=== PATIENT | male | born 1945 | race Caucasian/White ===

== ENCOUNTER 2021-08-04 07:39 | Inpatient (IN) ==
[2021-08-04] MEDS ORDERED: GLUCAGON 1 MG VIAL IM PRN (08:21)
[2021-08-04] MEDS ORDERED: CLORAZEPATE 3.75 MG TABLET PO PRN (09:14)
[2021-08-04] MEDS ORDERED: MORPHINE 2 MG/1 ML SYRINGE IV PRN (09:14)
[2021-08-04] MEDS ORDERED: NITROGLYCERIN SL 0.4 MG TABLET SL PRN (09:14)
[2021-08-04] MEDS ORDERED: DEXTROSE 10% 250 ML BAG IV PRN (13:12)
[2021-08-04 13:37] LABS: Basophils # 0.1 10*3/uL (0.0-0.2); Basophils % 1.5 % (0.0-0.8); Eosinophils # 0.2 10*3/uL (0.0-0.87); Eosinophils % 4.5 % (0.00-10.9); Hematocrit 46.8 VOL% (42.0-52.0); Hemoglobin 15.8 GM/DL (14.0-18.0); Immature Granulocytes % 0.4 %; Immature Granulocytes Absolute 0.02 #; Lymphocytes # 1.2 10*3/uL (1.4-4.0); Lymphocytes % 25.4 % (21.2-54.2); Mean Corpuscular HGB Conc 33.8 GM/DL (32-36); Mean Corpuscular Volume 88.1 FL (87-102); Mean Platelet Volume 8.9 FL (9.6-12.0); Monocytes # 0.5 10*3/uL (0.11-0.8); Monocytes % 11.1 % (1.7-12.7); Neutrophils % 57.1 % (38.7-73.9); Platelet Count 184 T/CUMM (130-400); Red Blood Count 5.31 MC/CUMM (3.8-5.5); Red Cell Distribution Width 15.2 % (9.3-17.3); White Blood Count 4.7 T/CUMM (4-12)
[2021-08-04] MEDS ORDERED: SODIUM CHLORIDE 0.9% 1,000 ML IV SCH (14:00)
[2021-08-04 14:01] LABS: Albumin 3.9 G/DL (3.4-5.0); Bilirubin,Total 0.7 MG/DL (0.20-1.00); Calcium 9.4 MG/DL (8.5-10.1); Osmolality,Calculated 288.5 MOS/KG (273-304); Potassium 4.5 MMOL/L (3.5-5.1); Total Protein 7.4 G/DL (6.4-8.2)
[2021-08-04] MEDS: CHLORHEXIDINE 0.12% ORAL RINSE 60 ML BOTTLE SWISH/SPIT SCH ×2 (14:33→22:08)
[2021-08-04] MEDS: CHLORHEXIDINE 4% SOLN 118 ML BOTTLE TOP SCH ×2 (15:02→22:08)
[2021-08-04] MEDS: INSULIN REGULAR 100 UNIT/ML SUBCUT SCH ×2 (15:54→21:34)
[2021-08-04 16:15] LABS: Arterial Base Excess iSTAT -1 MMOL/L (-2.5-2.5); Arterial Bicarbonate iSTAT 23.8 MMOL/L (20-26); Arterial O2 Saturation iSTAT 92 % (95-100); Arterial PCO2 iSTAT 40 MM HG (35-48); Arterial PO2 iSTAT 66 MM HG (80-95); Arterial Total CO2 iSTAT 25 MMO/L (23-27); Arterial pH iSTAT 7.382 (7.35-7.45)
[2021-08-04] MEDS ORDERED: SIMVASTATIN 20 MG TABLET PO SCH (21:00)
[2021-08-04] MEDS: carvediloL 12.5 MG TABLET PO SCH (22:08)
[2021-08-05] MEDS ORDERED: VANCOMYCIN 500 MG VIAL ONE (04:19)
[2021-08-05] MEDS ORDERED: PAPAVERINE 60 MG/2 ML VIAL ONE ×2 (04:19→09:58)
[2021-08-05] MEDS ORDERED: VANCOMYCIN 1,000 MG VIAL ONE (04:19)
[2021-08-05] MEDS ORDERED: DIAZEPAM 5 MG TABLET PO ONE (04:42)
[2021-08-05] MEDS: CHLORHEXIDINE 4% SOLN 118 ML BOTTLE TOP SCH (04:45)
[2021-08-05] MEDS ORDERED: PANTOPRAZOLE 40 MG TABLET PO STA (04:46)
[2021-08-05] MEDS ORDERED: CEFUROXIME INJ 1,500 MG in SODIUM CHLORIDE 0.9% 100 ML IV ONE (05:00)
[2021-08-05] MEDS ORDERED: MIDAZOLAM 10 MG/2 ML VIAL ONE ×4 (06:00→09:33)
[2021-08-05] MEDS ORDERED: SUFentanil 250 MCG/5 ML AMP ONE ×3 (06:00→06:01)
[2021-08-05] MEDS ORDERED: VECURONIUM 10 MG VIAL IV ONE ×2 (06:11→09:33)
[2021-08-05] MEDS ORDERED: LIDOCAINE 2% 5 ML VIAL ONE ×2 (06:11→11:36)
[2021-08-05] MEDS ORDERED: ETOMIDATE 40 MG/20 ML VIAL IV ONE (06:11)
[2021-08-05] MEDS ORDERED: MINERAL OIL/PETROLATUM OPH OINT 3.5 GM TUBE ONE (06:11)
[2021-08-05] MEDS ORDERED: AMINOCAPROIC ACID 5,000 MG/20 ML VIAL ONE ×4 (06:12)
[2021-08-05] MEDS ORDERED: SODIUM BICARBONATE 50 MEQ/50 ML VIAL IV ONE (06:54)
[2021-08-05] MEDS ORDERED: POTASSIUM CHLORIDE RIDER 20 MEQ/100 ML PREMIX IV ONE (06:55)
[2021-08-05] MEDS ORDERED: NITROPRUSSIDE 50 MG/2 ML VIAL ONE (06:55)
[2021-08-05] MEDS ORDERED: PHENYLEPHRINE DRIP 40 MG/250 ML PREMIX IV ONE (06:55)
[2021-08-05] MEDS ORDERED: CALCIUM CHLORIDE 1,000 MG/10 ML SYRINGE IV ONE (06:56)
[2021-08-05] MEDS ORDERED: ALBUMIN 5% 25.0 GM/500 ML VIAL IV ONE (06:57)
[2021-08-05] MEDS ORDERED: ePHEDrine 50 MG/ML VIAL ONE (07:25)
[2021-08-05 07:29] LABS: ABG HCO3 23.7 MMOL/L (20-26); ABG PCO2 40.7 MM HG (35-48); ABG PH 7.381 (7.35-7.45); ABG TCO2 20.5 MMOL/L (23-27); Glucose Heart Surgery 171 MG/DL (74-106); Hematocrit Heart Surgery 46.5 PERCENT (42-52); Hemoglobin Heart Surgery 15.2 G/DL (14.0-18.0); Ionized Calcium Arterial 1.23 MMOL/L (1.21-1.46); PCO2 Patient Temp Arterial 40.7 MMHG; PH Patient Temp Arterial 7.381; Patient Temperature 37 CELCIUS; Sodium Heart/CVR 140 MMOL/L (135-145)
[2021-08-05] MEDS ORDERED: PHENYLEPHRINE 1 MG/10 ML SYRINGE IV ONE (07:33)
[2021-08-05] MEDS ORDERED: NITROGLYCERIN DRIP 50 MG/250 ML BOTTLE IV ONE (07:46)
[2021-08-05] MEDS ORDERED: HEPARIN/NACL 0.9% 2 UNITS/ML 1,000 UNIT/500 ML BAG IV ONE (07:46)
[2021-08-05] MEDS ORDERED: CALCIUM CHLORIDE 1,000 MG/10 ML VIAL IV ONE ×3 (08:08→11:25)
[2021-08-05] MEDS: INSULIN REGULAR 100 UNIT/ML SUBCUT SCH ×2 (08:42→13:59)
[2021-08-05] MEDS: CHLORHEXIDINE 0.12% ORAL RINSE 60 ML BOTTLE SWISH/SPIT SCH (08:43)
[2021-08-05] MEDS: carvediloL 12.5 MG TABLET PO SCH (08:43)
[2021-08-05 09:14] LABS: Hematocrit Heart Surgery 32.9 PERCENT (42-52); Hemoglobin Heart Surgery 10.6 G/DL (14.0-18.0); PH Patient Temp Venous 7.452; VBG Base Excess -0.3 MEQ/L (0-4); VBG HCO3 23.9 MEQ/L (24-28); VBG Oxygen Saturation 83.1 %; VBG PCO2 38.2 MMHG (41-51); VBG PH 7.409; VBG PO2 49.2 MMHG (17-40); VBG Total CO2 21.8 MMOL/L
[2021-08-05 09:45] LABS: Hematocrit Heart Surgery 36.1 PERCENT (42-52); Hemoglobin Heart Surgery 11.7 G/DL (14.0-18.0); PCO2 Patient Temp Venous 28.5 MM HG; PH Patient Temp Venous 7.506; PO2 Patient Temp Venous 35.8 MM HG; Potassium Heart/CVR 4.9 MMOL/L (3.5-5.1); VBG Base Excess 0.3 MEQ/L (0-4); VBG HCO3 24.4 MEQ/L (24-28); VBG Oxygen Saturation 81.3 %; VBG PH 7.461; VBG PO2 44.1 MMHG (17-40); VBG Total CO2 20.9 MMOL/L
[2021-08-05 09:59] LABS: Bilirubin,Urine Negative (Negative); Blood, Urine Trace mg/dL (Negative); Glucose,Urine (UA) >1000 mg/dL (Negative); Ketones,Urine Negative (Negative); Nitrite,Urine Negative (Negative); Protein,Urine Negative (Negative); RBC,Urine 1 /HPF (0-4); Urine Appearance Clear (Clear); Urine Color Yellow (Yellow)
[2021-08-05 10:00] LABS: Urine Urobilinogen 0.2 eU/dL (<2.0)
[2021-08-05 10:10] LABS: Hemoglobin Heart Surgery 11.4 G/DL (14.0-18.0); PCO2 Patient Temp Venous 29.3 MM HG; PH Patient Temp Venous 7.501; PO2 Patient Temp Venous 36.6 MM HG; Potassium Heart/CVR 5.1 MMOL/L (3.5-5.1); VBG Base Excess 0.5 MEQ/L (0-4); VBG HCO3 24.6 MEQ/L (24-28); VBG Oxygen Saturation 80.4 %; VBG PCO2 33.9 MMHG (41-51); VBG PH 7.457; VBG PO2 45.1 MMHG (17-40); VBG Total CO2 21.4 MMOL/L
[2021-08-05 10:38] LABS: Hematocrit Heart Surgery 35.5 PERCENT (42-52); Hemoglobin Heart Surgery 11.5 G/DL (14.0-18.0); PCO2 Patient Temp Venous 35.3 MM HG; PH Patient Temp Venous 7.468; Potassium Heart/CVR 5.4 MMOL/L (3.5-5.1); VBG Base Excess 2.2 MEQ/L (0-4); VBG HCO3 25.9 MEQ/L (24-28); VBG Oxygen Saturation 75.5 %; VBG PCO2 35.3 MMHG (41-51); VBG PH 7.468; VBG Total CO2 22.8 MMOL/L
[2021-08-05] MEDS ORDERED: THROMBIN TOPICAL (RECOMBINANT) 5,000 UNIT VIAL TOP ONE (10:50)
[2021-08-05 11:23] LABS: ABG Base Excess -1.2 MMOL/L (-2.5-2.5); ABG HCO3 23.4 MMOL/L (20-26); ABG PCO2 35.2 MM HG (35-48); ABG PH 7.419 (7.35-7.45); ABG TCO2 20.4 MMOL/L (23-27); Glucose Heart Surgery 273 MG/DL (74-106); Hematocrit Heart Surgery 33.6 PERCENT (42-52); Hemoglobin Heart Surgery 10.9 G/DL (14.0-18.0); Ionized Calcium Arterial 1.15 MMOL/L (1.21-1.46); PCO2 Patient Temp Arterial 35.2 MMHG; PH Patient Temp Arterial 7.419; Patient Temperature 37 CELCIUS; Potassium Heart/CVR 4.7 MMOL/L (3.5-5.1); Sodium Heart/CVR 137 MMOL/L (135-145)
[2021-08-05] MEDS ORDERED: ALBUMIN 25% 25 GM/100 ML VIAL IV ONE (11:35)
[2021-08-05] MEDS ORDERED: DEXTROSE 5% KCL 20 MEQ 40 MEQ/2,000 ML BAG IV ONE (11:36)
[2021-08-05] MEDS ORDERED: MAGNESIUM SULFATE 5 GM/10 ML VIAL IV ONE (11:36)
[2021-08-05] MEDS ORDERED: methylPREDNISolone SOD SUC 1,000 MG/8 ML VIAL ONE (11:36)
[2021-08-05] MEDS ORDERED: FUROSEMIDE 20 MG/2 ML VIAL ONE (11:37)
[2021-08-05] MEDS ORDERED: PROTAMINE SULFATE 250 MG/25 ML VIAL IV ONE (11:37)
[2021-08-05] MEDS ORDERED: HEPARIN 10,000 UNIT/10 ML VIAL ONE (11:37)
[2021-08-05] MEDS ORDERED: MANNITOL 12.5 GM/50 ML VIAL IV ONE (11:37)
[2021-08-05] MEDS ORDERED: EPINEPHrine 1 MG/ML VIAL ONE ×2 (11:43→12:55)
[2021-08-05] MEDS ORDERED: AMIODARONE 150 MG/3 ML VIAL ONE (11:50)
[2021-08-05] MEDS ORDERED: LACTATED RINGERS 1,000 ML IV ONE ×2 (12:04)
[2021-08-05] MEDS ORDERED: SODIUM CHLORIDE 0.9% 1,000 ML IV ONE (12:04)
[2021-08-05] MEDS: ALBUMIN 5% 12.5 GM/250 ML VIAL IV PRN ×2 (13:10→13:51)
[2021-08-05] MEDS ORDERED: MORPHINE 10 MG/1 ML VIAL IV PRN (13:26)
[2021-08-05] MEDS ORDERED: MIDAZOLAM 10 MG/2 ML VIAL IV PRN (13:26)
[2021-08-05] MEDS ORDERED: CALCIUM CHLORIDE 1,000 MG/10 ML SYRINGE IV PRN (13:26)
[2021-08-05] MEDS ORDERED: INSULIN REGULAR 100 UNIT/ML IV ONE (13:26)
[2021-08-05] MEDS ORDERED: POTASSIUM CHLORIDE RIDER 10 MEQ/100 ML PREMIX IV PRN (13:26)
[2021-08-05] MEDS ORDERED: SODIUM CHLORIDE 0.45% 1,000 ML IV SCH ×2 (13:26)
[2021-08-05] MEDS ORDERED: CHLORHEXIDINE 4% SOLN 118 ML BOTTLE TOP PRN (13:26)
[2021-08-05] MEDS ORDERED: MAGNESIUM SULF RIDER 4 GM/100 ML PREMIX IV PRN (13:26)
[2021-08-05] MEDS ORDERED: PHENYLEPHRINE DRIP 40 MG/250 ML PREMIX IV PRN (13:26)
[2021-08-05] MEDS ORDERED: NITROPRUSSIDE 100 MG in DEXTROSE 5% 250 ML IV PRN (13:26)
[2021-08-05] MEDS ORDERED: MAGNESIUM SULF RIDER 2 GM/50 ML PREMIX IV PRN (13:26)
[2021-08-05] MEDS ORDERED: ACETAMINOPHEN 650 MG SUPP RECTAL PRN (13:26)
[2021-08-05] MEDS ORDERED: ONDANSETRON 4 MG/2 ML VIAL IV PRN (13:26)
[2021-08-05] MEDS ORDERED: VECURONIUM 10 MG VIAL IV PRN ×2 (13:26)
[2021-08-05] MEDS ORDERED: LACTATED RINGERS 250 ML IV PRN (13:26)
[2021-08-05] MEDS ORDERED: DEXTROSE 10% 250 ML BAG IV PRN ×2 (13:26)
[2021-08-05] MEDS ORDERED: MIDAZOLAM 2 MG/2 ML VIAL IV PRN (13:26)
[2021-08-05] MEDS ORDERED: POTASSIUM CHLORIDE RIDER 20 MEQ/100 ML PREMIX IV PRN (13:26)
[2021-08-05] MEDS ORDERED: INSULIN REGULAR 100 UNIT/ML IV PRN (13:26)
[2021-08-05 13:29] LABS: ABG Base Excess -4.2 MMOL/L (-2.5-2.5); ABG HCO3 20.9 MMOL/L (20-26); ABG Oxygen Saturation 99.3 % (95-100); ABG PCO2 39.4 MM HG (35-48); ABG PH 7.338 (7.35-7.45); ABG TCO2 19.9 MMOL/L (23-27); Glucose Heart Surgery 407 MG/DL (74-106); Hematocrit Heart Surgery 24.8 PERCENT (42-52); Potassium Heart/CVR 4.3 MMOL/L (3.5-5.1)
[2021-08-05 13:31] LABS: Basophils # 0.1 10*3/uL (0.0-0.2); Basophils % 0.4 % (0.0-0.8); Eosinophils # 0.1 10*3/uL (0.0-0.87); Eosinophils % 0.6 % (0.00-10.9); Hematocrit 22.5 VOL% (42.0-52.0); Hemoglobin 7.6 GM/DL (14.0-18.0); Immature Granulocytes % 0.8 %; Immature Granulocytes Absolute 0.12 #; Lymphocytes # 2.5 10*3/uL (1.4-4.0); Lymphocytes % 16.1 % (21.2-54.2); Mean Corpuscular HGB Conc 33.8 GM/DL (32-36); Mean Corpuscular Volume 88.9 FL (87-102); Monocytes # 0.7 10*3/uL (0.11-0.8); Monocytes % 4.7 % (1.7-12.7); Neutrophils % 77.4 % (38.7-73.9); Platelet Count 279 T/CUMM (130-400); Red Blood Count 2.53 MC/CUMM (3.8-5.5); Red Cell Distribution Width 15.2 % (9.3-17.3); White Blood Count 15.4 T/CUMM (4-12)
[2021-08-05 13:39] LABS: INR 1.1; PT Patient Result 12.5 SECS (10.5-12.0); Partial Thromboplastin Time 30.7 SECS (23.8-32.1)
[2021-08-05 13:51] LABS: CKMB % 6.61 %
[2021-08-05 13:53] LABS: High Sensitive Troponin I* 6662.9 ng/L (0-78)
[2021-08-05 14:01] LABS: Osmolality,Calculated 298.3 MOS/KG (273-304); Potassium 4.3 MMOL/L (3.5-5.1); Total Protein 5.3 G/DL (6.4-8.2)
[2021-08-05] MEDS: INSULIN REGULAR DRIP 100 ML IV SCH (14:12)
[2021-08-05] MEDS ORDERED: LACTATED RINGERS 1,000 ML IV PRN (15:30)
[2021-08-05 15:37] LABS: ABG Base Excess -3.5 MMOL/L (-2.5-2.5); ABG HCO3 21.5 MMOL/L (20-26); ABG Oxygen Saturation 98.1 % (95-100); ABG PCO2 40.3 MM HG (35-48); ABG PH 7.343 (7.35-7.45); ABG TCO2 20.1 MMOL/L (23-27); Glucose Heart Surgery 354 MG/DL (74-106); Hematocrit Heart Surgery 30.1 PERCENT (42-52); Hemoglobin Heart Surgery 9.7 G/DL (14.0-18.0); Potassium Heart/CVR 4.1 MMOL/L (3.5-5.1)
[2021-08-05 17:08] LABS: ABG Base Excess -0.7 MMOL/L (-2.5-2.5); ABG HCO3 23.9 MMOL/L (20-26); ABG Oxygen Saturation 98.9 % (95-100); ABG PCO2 48.4 MM HG (35-48); ABG PH 7.332 (7.35-7.45); ABG TCO2 23.5 MMOL/L (23-27); Glucose Heart Surgery 265 MG/DL (74-106); Hematocrit Heart Surgery 30.5 PERCENT (42-52); Hemoglobin Heart Surgery 9.9 G/DL (14.0-18.0); Potassium Heart/CVR 3.8 MMOL/L (3.5-5.1)
[2021-08-05 18:31] LABS: ABG Base Excess -1.3 MMOL/L (-2.5-2.5); ABG HCO3 23.4 MMOL/L (20-26); ABG Oxygen Saturation 99.4 % (95-100); ABG PCO2 39.8 MM HG (35-48); ABG PH 7.382 (7.35-7.45); ABG TCO2 21.5 MMOL/L (23-27); Glucose Heart Surgery 229 MG/DL (74-106); Hematocrit Heart Surgery 31.6 PERCENT (42-52); Hemoglobin Heart Surgery 10.2 G/DL (14.0-18.0)
[2021-08-05] MEDS: CEFUROXIME INJ 1,500 MG in SODIUM CHLORIDE 0.9% 100 ML IV SCH (19:49)
[2021-08-05 19:51] LABS: ABG Base Excess -0.9 MMOL/L (-2.5-2.5); ABG HCO3 23.7 MMOL/L (20-26); ABG Oxygen Saturation 99.6 % (95-100); ABG PCO2 36.9 MM HG (35-48); Glucose Heart Surgery 203 MG/DL (74-106); Hematocrit Heart Surgery 32.8 PERCENT (42-52); Hemoglobin Heart Surgery 10.6 G/DL (14.0-18.0); Potassium Heart/CVR 4.1 MMOL/L (3.5-5.1)
[2021-08-05] MEDS ORDERED: CHLORHEXIDINE 0.12% ORAL RINSE 60 ML BOTTLE SWISH/SPIT SCH (21:00)
[2021-08-05 21:08] LABS: ABG Base Excess -0.5 MMOL/L (-2.5-2.5); ABG Oxygen Saturation 99.2 % (95-100); ABG PCO2 35.9 MM HG (35-48); ABG PH 7.424 (7.35-7.45); ABG TCO2 21.2 MMOL/L (23-27); Glucose Heart Surgery 189 MG/DL (74-106); Hemoglobin Heart Surgery 10.4 G/DL (14.0-18.0)
[2021-08-05 22:15] LABS: ABG Base Excess -1.3 MMOL/L (-2.5-2.5); ABG HCO3 23.3 MMOL/L (20-26); ABG Oxygen Saturation 99.4 % (95-100); ABG PCO2 40.2 MM HG (35-48); ABG PH 7.378 (7.35-7.45); ABG TCO2 21.5 MMOL/L (23-27); Glucose Heart Surgery 175 MG/DL (74-106); Hematocrit Heart Surgery 31.3 PERCENT (42-52); Hemoglobin Heart Surgery 10.1 G/DL (14.0-18.0)
[2021-08-05 23:04] LABS: ABG Base Excess -1.5 MMOL/L (-2.5-2.5); ABG HCO3 23.2 MMOL/L (20-26); ABG Oxygen Saturation 99.1 % (95-100); ABG PCO2 43.3 MM HG (35-48); ABG PH 7.354 (7.35-7.45); ABG TCO2 21.9 MMOL/L (23-27); Glucose Heart Surgery 163 MG/DL (74-106); Hemoglobin Heart Surgery 10.3 G/DL (14.0-18.0)
[2021-08-06] MEDS ORDERED: FUROSEMIDE 40 MG/4 ML VIAL IV ONE (00:03)
[2021-08-06 00:51] LABS: CKMB % 6.17 %; High Sensitive Troponin I* 3965.4 ng/L (0-78)
[2021-08-06 00:56] LABS: ABG Base Excess -0.2 MMOL/L (-2.5-2.5); ABG HCO3 24.3 MMOL/L (20-26); ABG Oxygen Saturation 99.4 % (95-100); ABG PCO2 38.5 MM HG (35-48); ABG PH 7.407 (7.35-7.45); Glucose Heart Surgery 139 MG/DL (74-106); Hematocrit Heart Surgery 31.4 PERCENT (42-52); Hemoglobin Heart Surgery 10.1 G/DL (14.0-18.0); Potassium Heart/CVR 3.9 MMOL/L (3.5-5.1)
[2021-08-06 02:32] LABS: ABG Base Excess -0.3 MMOL/L (-2.5-2.5); ABG HCO3 24.2 MMOL/L (20-26); ABG Oxygen Saturation 99.2 % (95-100); ABG PCO2 48.7 MM HG (35-48); ABG PH 7.334 (7.35-7.45); ABG TCO2 23.8 MMOL/L (23-27); Glucose Heart Surgery 120 MG/DL (74-106); Hematocrit Heart Surgery 29.7 PERCENT (42-52); Hemoglobin Heart Surgery 9.6 G/DL (14.0-18.0)
[2021-08-06] MEDS: INSULIN REGULAR DRIP 100 ML IV SCH (02:33)
[2021-08-06 03:36] LABS: Basophils % 0.1 % (0.0-0.8); Hematocrit 27.5 VOL% (42.0-52.0); Hemoglobin 9.3 GM/DL (14.0-18.0); Immature Granulocytes % 0.4 %; Immature Granulocytes Absolute 0.04 #; Lymphocytes # 0.7 10*3/uL (1.4-4.0); Lymphocytes % 6.6 % (21.2-54.2); Mean Corpuscular HGB Conc 33.8 GM/DL (32-36); Mean Corpuscular Volume 87.6 FL (87-102); Mean Platelet Volume 9.7 FL (9.6-12.0); Monocytes # 0.9 10*3/uL (0.11-0.8); Monocytes % 8.4 % (1.7-12.7); Neutrophils % 84.5 % (38.7-73.9); Platelet Count 183 T/CUMM (130-400); Red Blood Count 3.14 MC/CUMM (3.8-5.5); Red Cell Distribution Width 15.6 % (9.3-17.3); White Blood Count 10.9 T/CUMM (4-12)
[2021-08-06 03:38] LABS: ABG Base Excess 1.2 MMOL/L (-2.5-2.5); ABG HCO3 25.5 MMOL/L (20-26); ABG PCO2 34.1 MM HG (35-48); ABG PH 7.467 (7.35-7.45); ABG TCO2 22.5 MMOL/L (23-27); Glucose Heart Surgery 106 MG/DL (74-106); Hematocrit Heart Surgery 29.2 PERCENT (42-52); Hemoglobin Heart Surgery 9.4 G/DL (14.0-18.0); Potassium Heart/CVR 3.9 MMOL/L (3.5-5.1)
[2021-08-06 03:55] LABS: Albumin 3.3 G/DL (3.4-5.0); Bilirubin,Direct 0.15 MG/DL (0.0-0.20); Bilirubin,Total 0.4 MG/DL (0.20-1.00); Calcium 9.3 MG/DL (8.5-10.1); Osmolality,Calculated 295.4 MOS/KG (273-304); Potassium 3.9 MMOL/L (3.5-5.1); Total Protein 5.9 G/DL (6.4-8.2)
[2021-08-06 05:05] LABS: ABG Base Excess -0.9 MMOL/L (-2.5-2.5); ABG HCO3 23.7 MMOL/L (20-26); ABG PCO2 36.2 MM HG (35-48); ABG PH 7.417 (7.35-7.45); ABG TCO2 21.3 MMOL/L (23-27); Glucose Heart Surgery 164 MG/DL (74-106); Hematocrit Heart Surgery 29.1 PERCENT (42-52); Hemoglobin Heart Surgery 9.4 G/DL (14.0-18.0); Potassium Heart/CVR 4.4 MMOL/L (3.5-5.1)
[2021-08-06 05:06] LABS: Hematocrit 27.6 VOL% (42.0-52.0); Hemoglobin 9.2 GM/DL (14.0-18.0)
[2021-08-06] MEDS: CEFUROXIME INJ 1,500 MG in SODIUM CHLORIDE 0.9% 100 ML IV SCH ×2 (06:37→20:20)
[2021-08-06 07:09] LABS: ABG Base Excess -2.2 MMOL/L (-2.5-2.5); ABG HCO3 22.6 MMOL/L (20-26); ABG Oxygen Saturation 98.8 % (95-100); ABG PH 7.374 (7.35-7.45); ABG TCO2 20.9 MMOL/L (23-27); Glucose Heart Surgery 181 MG/DL (74-106); Hematocrit Heart Surgery 28.9 PERCENT (42-52); Hemoglobin Heart Surgery 9.3 G/DL (14.0-18.0); Potassium Heart/CVR 4.3 MMOL/L (3.5-5.1)
[2021-08-06] MEDS ORDERED: ONDANSETRON 4 MG/2 ML VIAL IV PRN (08:21)
[2021-08-06] MEDS ORDERED: MAGNESIUM SULF RIDER 4 GM/100 ML PREMIX IV PRN (08:21)
[2021-08-06] MEDS ORDERED: ALUMINUM/MAGNES/SIMETH MAX STR 30 ML UDCUP PO PRN (08:21)
[2021-08-06] MEDS ORDERED: MAGNESIUM HYDROXIDE SUSP 30 ML UDCUP PO PRN (08:21)
[2021-08-06] MEDS ORDERED: DEXTROSE 50% 25 GM/50 ML VIAL IV PRN (08:21)
[2021-08-06] MEDS ORDERED: ACETAMINOPHEN 325 MG TABLET PO PRN (08:21)
[2021-08-06] MEDS ORDERED: GLUCAGON 1 MG VIAL IM PRN ×2 (08:21)
[2021-08-06] MEDS ORDERED: MAGNESIUM SULF RIDER 2 GM/50 ML PREMIX IV PRN (08:21)
[2021-08-06] MEDS ORDERED: DEXTROSE 10% 250 ML BAG IV PRN (08:33)
[2021-08-06] MEDS: ASCORBIC ACID 500 MG TABLET PO SCH ×2 (08:43→20:34)
[2021-08-06] MEDS: CHOLECALCIFEROL 1,000 UNIT TABLET PO SCH (08:44)
[2021-08-06] MEDS: CYANOCOBALAMIN 500 MCG TABLET PO SCH (08:44)
[2021-08-06] MEDS: FERROUS SULFATE 325 MG TABLET PO SCH (08:45)
[2021-08-06] MEDS: ASPIRIN EC 81 MG TABLET PO SCH (08:45)
[2021-08-06] MEDS: MULTIVITAMIN (OCUVITE) TABLET PO SCH ×2 (08:45→20:34)
[2021-08-06] MEDS: DOCUSATE SODIUM 100 MG CAPSULE PO SCH (08:45)
[2021-08-06] MEDS: SERTRALINE 25 MG TABLET PO SCH (08:46)
[2021-08-06] MEDS: PANTOPRAZOLE 40 MG TABLET PO SCH (08:46)
[2021-08-06] MEDS ORDERED: PANTOPRAZOLE 40 MG VIAL IV ONE (09:00)
[2021-08-06] MEDS ORDERED: ASPIRIN CHEW 81 MG TABLET PO ONE (09:00)
[2021-08-06] MEDS: SODIUM CHLOR 0.45% KCL 20 MEQ 20 MEQ/1,000 ML BAG IV SCH (09:28)
[2021-08-06] MEDS: gemfibroziL 600 MG TABLET PO SCH ×2 (09:39→20:34)
[2021-08-06] MEDS: CHLORHEXIDINE 0.12% ORAL RINSE 60 ML BOTTLE SWISH/SPIT SCH ×2 (09:39→21:31)
[2021-08-06 09:51] LABS: CKMB % 4.27 %; High Sensitive Troponin I* 2349.8 ng/L (0-78)
[2021-08-06] MEDS: DAPAGLIFLOZIN 10 MG TABLET PO SCH (12:58)
[2021-08-06] MEDS ORDERED: DILTIAZEM 25 MG/5 ML VIAL IV ONE (14:12)
[2021-08-06] MEDS ORDERED: AMIODARONE 450 MG/9 ML VIAL IV ONE (14:12)
[2021-08-06] MEDS ORDERED: AMIODARONE 150 MG/3 ML VIAL ONE (14:12)
[2021-08-06] MEDS ORDERED: AMIODARONE INJ 450 MG in DEXTROSE 5% 241 ML IV SCH ×2 (14:30→21:00)
[2021-08-06] MEDS: DILTIAZEM INJ 100 MG in SODIUM CHLORIDE 0.9% 100 ML IV SCH ×2 (14:40→20:43)
[2021-08-06 14:59] LABS: CKMB % 3.27 %; High Sensitive Troponin I* 1568.6 ng/L (0-78)
[2021-08-06] MEDS ORDERED: ALBUMIN 5% 12.5 GM/250 ML VIAL IV ONE ×2 (15:40→15:53)
[2021-08-06] MEDS: ROSUVASTATIN 20 MG TABLET PO SCH (20:34)
[2021-08-06] MEDS: oxyCODONE/ACETAMINOPHEN 5-325 MG TABLET PO PRN (20:59)
[2021-08-07] MEDS: oxyCODONE/ACETAMINOPHEN 5-325 MG TABLET PO PRN (01:31)
[2021-08-07 03:29] LABS: Basophils % 0.1 % (0.0-0.8); Hematocrit 26.6 VOL% (42.0-52.0); Hemoglobin 8.5 GM/DL (14.0-18.0); Immature Granulocytes % 0.7 %; Immature Granulocytes Absolute 0.08 #; Lymphocytes # 0.9 10*3/uL (1.4-4.0); Lymphocytes % 7.9 % (21.2-54.2); Mean Corpuscular Volume 87.8 FL (87-102); Mean Platelet Volume 9.8 FL (9.6-12.0); Monocytes # 1.1 10*3/uL (0.11-0.8); Monocytes % 9.7 % (1.7-12.7); Neutrophils % 81.6 % (38.7-73.9); Platelet Count 114 T/CUMM (130-400); Red Blood Count 3.03 MC/CUMM (3.8-5.5); Red Cell Distribution Width 17.6 % (9.3-17.3); White Blood Count 11.5 T/CUMM (4-12)
[2021-08-07 03:54] LABS: Albumin 3.1 G/DL (3.4-5.0); Bilirubin,Direct 0.16 MG/DL (0.0-0.20); Bilirubin,Total 0.6 MG/DL (0.20-1.00); Osmolality,Calculated 287.4 MOS/KG (273-304); Potassium 4.4 MMOL/L (3.5-5.1); Total Protein 5.9 G/DL (6.4-8.2)
[2021-08-07 04:03] LABS: Albumin 3.2 G/DL (3.4-5.0); Bilirubin,Direct 0.19 MG/DL (0.0-0.20); Bilirubin,Indirect 0.4 MG/DL (0.0-1.0); Bilirubin,Total 0.6 MG/DL (0.20-1.00); CKMB % 5.02 %; Total Protein 5.5 G/DL (6.4-8.2)
[2021-08-07 04:08] LABS: High Sensitive Troponin I* 2275.8 ng/L (0-78)
[2021-08-07] MEDS ORDERED: SODIUM CHLORIDE 0.9% 1,000 ML IV PRN (05:56)
[2021-08-07] MEDS ORDERED: FUROSEMIDE 40 MG/4 ML VIAL IV ONE (06:00)
[2021-08-07] MEDS: SODIUM CHLOR 0.45% KCL 20 MEQ 20 MEQ/1,000 ML BAG IV SCH (08:49)
[2021-08-07] MEDS: DAPAGLIFLOZIN 10 MG TABLET PO SCH (09:10)
[2021-08-07] MEDS: FERROUS SULFATE 325 MG TABLET PO SCH (09:10)
[2021-08-07] MEDS: MULTIVITAMIN (OCUVITE) TABLET PO SCH ×2 (09:10→21:17)
[2021-08-07] MEDS: ASPIRIN EC 81 MG TABLET PO SCH (09:10)
[2021-08-07] MEDS: DOCUSATE SODIUM 100 MG CAPSULE PO SCH (09:11)
[2021-08-07] MEDS: SERTRALINE 25 MG TABLET PO SCH (09:14)
[2021-08-07] MEDS: PANTOPRAZOLE 40 MG TABLET PO SCH (09:14)
[2021-08-07] MEDS: ASCORBIC ACID 500 MG TABLET PO SCH ×2 (09:14→21:17)
[2021-08-07] MEDS: CYANOCOBALAMIN 500 MCG TABLET PO SCH (09:14)
[2021-08-07] MEDS: CHOLECALCIFEROL 1,000 UNIT TABLET PO SCH (09:14)
[2021-08-07] MEDS: gemfibroziL 600 MG TABLET PO SCH ×2 (09:17→21:17)
[2021-08-07] MEDS: CHLORHEXIDINE 0.12% ORAL RINSE 60 ML BOTTLE SWISH/SPIT SCH ×2 (09:31→21:24)
[2021-08-07] MEDS ORDERED: AMIODARONE 200 MG TABLET PO SCH (10:30)
[2021-08-07] MEDS ORDERED: AMIODARONE INJ 100 MG in DEXTROSE 5% 100 ML IV ONE (17:11)
[2021-08-07] MEDS ORDERED: DILTIAZEM 25 MG/5 ML VIAL IV ONE (17:30)
[2021-08-07] MEDS: AMIODARONE INJ 450 MG in DEXTROSE 5% 241 ML IV SCH (17:30)
[2021-08-07] MEDS: DILTIAZEM INJ 100 MG in SODIUM CHLORIDE 0.9% 100 ML IV SCH (18:07)
[2021-08-07] MEDS ORDERED: INSULIN REGULAR 100 UNIT/ML ONE (18:45)
[2021-08-07] MEDS: ROSUVASTATIN 20 MG TABLET PO SCH (21:17)
[2021-08-07] MEDS: INSULIN REGULAR 100 UNIT/ML SUBCUT SCH (21:17)
[2021-08-08] MEDS: DILTIAZEM INJ 100 MG in SODIUM CHLORIDE 0.9% 100 ML IV SCH (01:02)
[2021-08-08 04:44] LABS: Basophils % 0.2 % (0.0-0.8); Eosinophils % 0.1 % (0.00-10.9); Hematocrit 29.5 VOL% (42.0-52.0); Hemoglobin 9.8 GM/DL (14.0-18.0); Immature Granulocytes % 0.9 %; Lymphocytes # 0.9 10*3/uL (1.4-4.0); Lymphocytes % 8.5 % (21.2-54.2); Mean Corpuscular HGB Conc 33.2 GM/DL (32-36); Mean Corpuscular Volume 86.8 FL (87-102); Mean Platelet Volume 9.7 FL (9.6-12.0); Neutrophils % 81.3 % (38.7-73.9); Platelet Count 132 T/CUMM (130-400); Red Cell Distribution Width 16.6 % (9.3-17.3); White Blood Count 10.7 T/CUMM (4-12)
[2021-08-08 05:26] LABS: Alanine Aminotransferase 22 U/L (16-61); Albumin 3.1 G/DL (3.4-5.0); Albumin 3.2 G/DL (3.4-5.0); Alkaline Phosphatase 54 U/L (45-117); Aspartate Amino Transferase 30 U/L (0-37); Bilirubin,Direct 0.24 MG/DL (0.0-0.20); Bilirubin,Indirect 0.6 MG/DL (0.0-1.0); Bilirubin,Total 0.8 MG/DL (0.20-1.00); Osmolality,Calculated 280.7 MOS/KG (273-304); Potassium 3.7 MMOL/L (3.5-5.1); Total Protein 5.6 G/DL (6.4-8.2); Total Protein 6.3 G/DL (6.4-8.2)
[2021-08-08] MEDS: INSULIN REGULAR 100 UNIT/ML SUBCUT SCH ×4 (08:02→21:39)
[2021-08-08] MEDS: MULTIVITAMIN (OCUVITE) TABLET PO SCH ×2 (09:00→21:39)
[2021-08-08] MEDS: CHLORHEXIDINE 0.12% ORAL RINSE 60 ML BOTTLE SWISH/SPIT SCH ×2 (09:00→21:40)
[2021-08-08] MEDS ORDERED: carvediloL 3.125 MG TABLET PO SCH (09:00)
[2021-08-08] MEDS: DAPAGLIFLOZIN 10 MG TABLET PO SCH (09:00)
[2021-08-08] MEDS: ASCORBIC ACID 500 MG TABLET PO SCH ×2 (09:00→21:39)
[2021-08-08] MEDS: CHOLECALCIFEROL 1,000 UNIT TABLET PO SCH (09:00)
[2021-08-08] MEDS: DOCUSATE SODIUM 100 MG CAPSULE PO SCH (09:00)
[2021-08-08] MEDS: SERTRALINE 25 MG TABLET PO SCH (09:00)
[2021-08-08] MEDS: ASPIRIN EC 81 MG TABLET PO SCH (09:00)
[2021-08-08] MEDS: FERROUS SULFATE 325 MG TABLET PO SCH (09:00)
[2021-08-08] MEDS: gemfibroziL 600 MG TABLET PO SCH ×2 (09:00→21:39)
[2021-08-08] MEDS: CYANOCOBALAMIN 500 MCG TABLET PO SCH (09:00)
[2021-08-08] MEDS: PANTOPRAZOLE 40 MG TABLET PO SCH (09:00)
[2021-08-08] MEDS ORDERED: DILTIAZEM CD 120 MG CAPSULE PO SCH (09:00)
[2021-08-08] MEDS ORDERED: APIXABAN 5 MG TABLET PO SCH (09:08)
[2021-08-08] MEDS: carvediloL 6.25 MG TABLET PO SCH ×2 (09:45→21:39)
[2021-08-08] MEDS: AMIODARONE INJ 450 MG in DEXTROSE 5% 241 ML IV SCH (10:45)
[2021-08-08] MEDS: AMIODARONE 200 MG TABLET PO SCH (21:39)
[2021-08-08] MEDS: APIXABAN 2.5 MG TABLET PO SCH (21:39)
[2021-08-08] MEDS: ROSUVASTATIN 20 MG TABLET PO SCH (21:39)
[2021-08-09 04:04] LABS: Basophils % 0.1 % (0.0-0.8); Eosinophils % 0.1 % (0.00-10.9); Hematocrit 29.7 VOL% (42.0-52.0); Hemoglobin 9.8 GM/DL (14.0-18.0); Immature Granulocytes % 0.7 %; Immature Granulocytes Absolute 0.06 #; Lymphocytes # 0.5 10*3/uL (1.4-4.0); Lymphocytes % 6.2 % (21.2-54.2); Mean Corpuscular Volume 87.1 FL (87-102); Mean Platelet Volume 9.7 FL (9.6-12.0); Monocytes # 0.8 10*3/uL (0.11-0.8); Monocytes % 9.3 % (1.7-12.7); Neutrophils % 83.6 % (38.7-73.9); Platelet Count 149 T/CUMM (130-400); Red Blood Count 3.41 MC/CUMM (3.8-5.5); Red Cell Distribution Width 15.9 % (9.3-17.3); White Blood Count 8.7 T/CUMM (4-12)
[2021-08-09 04:29] LABS: Albumin 3.1 G/DL (3.4-5.0); Bilirubin,Total 0.6 MG/DL (0.20-1.00); Calcium 9.7 MG/DL (8.5-10.1); Osmolality,Calculated 279.8 MOS/KG (273-304); Potassium 4.1 MMOL/L (3.5-5.1); Total Protein 6.6 G/DL (6.4-8.2)
[2021-08-09] MEDS: AMIODARONE INJ 450 MG in DEXTROSE 5% 241 ML IV SCH ×2 (06:59→14:01)
[2021-08-09] MEDS: INSULIN REGULAR 100 UNIT/ML SUBCUT SCH ×4 (08:00→20:00)
[2021-08-09] MEDS: APIXABAN 2.5 MG TABLET PO SCH ×2 (09:00→20:00)
[2021-08-09] MEDS ORDERED: DILTIAZEM CD 120 MG CAPSULE PO SCH (09:18)
[2021-08-09] MEDS: ASPIRIN EC 81 MG TABLET PO SCH (09:20)
[2021-08-09] MEDS: DOCUSATE SODIUM 100 MG CAPSULE PO SCH (09:20)
[2021-08-09] MEDS: carvediloL 6.25 MG TABLET PO SCH ×2 (09:20→20:00)
[2021-08-09] MEDS: AMIODARONE 200 MG TABLET PO SCH ×2 (09:20→20:01)
[2021-08-09] MEDS: CHLORHEXIDINE 0.12% ORAL RINSE 60 ML BOTTLE SWISH/SPIT SCH ×2 (09:21→20:01)
[2021-08-09] MEDS: gemfibroziL 600 MG TABLET PO SCH ×2 (09:21→20:00)
[2021-08-09] MEDS: DAPAGLIFLOZIN 10 MG TABLET PO SCH (09:21)
[2021-08-09] MEDS: MULTIVITAMIN (OCUVITE) TABLET PO SCH ×2 (09:21→20:00)
[2021-08-09] MEDS: FERROUS SULFATE 325 MG TABLET PO SCH (09:21)
[2021-08-09] MEDS: SERTRALINE 25 MG TABLET PO SCH (09:21)
[2021-08-09] MEDS: PANTOPRAZOLE 40 MG TABLET PO SCH (09:21)
[2021-08-09] MEDS: CHOLECALCIFEROL 1,000 UNIT TABLET PO SCH (09:22)
[2021-08-09] MEDS: ASCORBIC ACID 500 MG TABLET PO SCH ×2 (09:22→20:00)
[2021-08-09] MEDS: CYANOCOBALAMIN 500 MCG TABLET PO SCH (09:22)
[2021-08-09] MEDS ORDERED: AMIODARONE INJ 450 MG in DEXTROSE 5% 241 ML IV SCH (09:30)
[2021-08-09] MEDS: DILTIAZEM INJ 100 MG in SODIUM CHLORIDE 0.9% 100 ML IV SCH ×2 (09:45→19:28)
[2021-08-09] MEDS: POLYETHYLENE GLYCOL POWDER 17 GM PACK PO SCH (10:27)
[2021-08-09] MEDS: ROSUVASTATIN 20 MG TABLET PO SCH (20:00)
[2021-08-10 04:11] LABS: Basophils % 0.3 % (0.0-0.8); Eosinophils # 0.2 10*3/uL (0.0-0.87); Eosinophils % 2.3 % (0.00-10.9); Hematocrit 31.7 VOL% (42.0-52.0); Hemoglobin 10.5 GM/DL (14.0-18.0); Immature Granulocytes % 1.1 %; Immature Granulocytes Absolute 0.09 #; Lymphocytes # 1.1 10*3/uL (1.4-4.0); Lymphocytes % 13.8 % (21.2-54.2); Mean Corpuscular HGB Conc 33.1 GM/DL (32-36); Mean Corpuscular Volume 87.6 FL (87-102); Mean Platelet Volume 9.3 FL (9.6-12.0); Monocytes # 0.9 10*3/uL (0.11-0.8); Monocytes % 10.9 % (1.7-12.7); Neutrophils % 71.6 % (38.7-73.9); Platelet Count 189 T/CUMM (130-400); Red Blood Count 3.62 MC/CUMM (3.8-5.5); Red Cell Distribution Width 16.6 % (9.3-17.3)
[2021-08-10 04:31] LABS: Alanine Aminotransferase 19 U/L (16-61); Albumin 2.9 G/DL (3.4-5.0); Alkaline Phosphatase 62 U/L (45-117); Aspartate Amino Transferase 14 U/L (0-37); Bilirubin,Indirect 0.4 MG/DL (0.0-1.0); Blood Urea Nitrogen 29 MG/DL (7-18); Calcium 9.1 MG/DL (8.5-10.1); Carbon Dioxide 29 MMOL/L (21-32); Chloride 103 MMOL/L (98-107); Glucose 149 MG/DL (74-106); Osmolality,Calculated 283.7 MOS/KG (273-304); Potassium 3.8 MMOL/L (3.5-5.1); Sodium 138 MMOL/L (136-145); Total Protein 6.3 G/DL (6.4-8.2)
[2021-08-10] MEDS: POTASSIUM CHLORIDE 20 MEQ TABLET PO PRN ×2 (04:47→08:56)
[2021-08-10] MEDS: AMIODARONE INJ 450 MG in DEXTROSE 5% 241 ML IV SCH (04:47)
[2021-08-10] MEDS: INSULIN REGULAR 100 UNIT/ML SUBCUT SCH ×4 (07:55→21:35)
[2021-08-10] MEDS: DAPAGLIFLOZIN 10 MG TABLET PO SCH (08:54)
[2021-08-10] MEDS: AMIODARONE 200 MG TABLET PO SCH ×2 (08:54→21:35)
[2021-08-10] MEDS: CYANOCOBALAMIN 500 MCG TABLET PO SCH (08:54)
[2021-08-10] MEDS: MULTIVITAMIN (OCUVITE) TABLET PO SCH ×2 (08:55→21:36)
[2021-08-10] MEDS: ASCORBIC ACID 500 MG TABLET PO SCH ×2 (08:55→21:36)
[2021-08-10] MEDS: POLYETHYLENE GLYCOL POWDER 17 GM PACK PO SCH (08:55)
[2021-08-10] MEDS: FERROUS SULFATE 325 MG TABLET PO SCH (08:56)
[2021-08-10] MEDS: PANTOPRAZOLE 40 MG TABLET PO SCH (08:57)
[2021-08-10] MEDS: APIXABAN 2.5 MG TABLET PO SCH ×2 (08:57→21:36)
[2021-08-10] MEDS: DOCUSATE SODIUM 100 MG CAPSULE PO SCH (08:58)
[2021-08-10] MEDS: carvediloL 12.5 MG TABLET PO SCH ×2 (08:58→21:35)
[2021-08-10] MEDS: ASPIRIN EC 81 MG TABLET PO SCH (08:58)
[2021-08-10] MEDS: SERTRALINE 25 MG TABLET PO SCH (08:58)
[2021-08-10] MEDS: DILTIAZEM CD 120 MG CAPSULE PO SCH ×2 (08:59→21:35)
[2021-08-10] MEDS: CHLORHEXIDINE 0.12% ORAL RINSE 60 ML BOTTLE SWISH/SPIT SCH ×2 (09:00→21:36)
[2021-08-10] MEDS: CHOLECALCIFEROL 1,000 UNIT TABLET PO SCH (09:00)
[2021-08-10] MEDS: gemfibroziL 600 MG TABLET PO SCH ×2 (09:20→21:35)
[2021-08-10] MEDS: DILTIAZEM INJ 100 MG in SODIUM CHLORIDE 0.9% 100 ML IV SCH (10:08)
[2021-08-10] MEDS: ROSUVASTATIN 20 MG TABLET PO SCH (21:35)
[2021-08-11 05:55] LABS: Basophils # 0.1 10*3/uL (0.0-0.2); Basophils % 0.7 % (0.0-0.8); Eosinophils # 0.5 10*3/uL (0.0-0.87); Eosinophils % 6.1 % (0.00-10.9); Hematocrit 32.1 VOL% (42.0-52.0); Hemoglobin 10.5 GM/DL (14.0-18.0); Immature Granulocytes % 1.2 %; Immature Granulocytes Absolute 0.09 #; Lymphocytes # 1.1 10*3/uL (1.4-4.0); Lymphocytes % 15.1 % (21.2-54.2); Mean Corpuscular HGB Conc 32.7 GM/DL (32-36); Mean Platelet Volume 9.3 FL (9.6-12.0); Monocytes # 0.9 10*3/uL (0.11-0.8); Monocytes % 11.5 % (1.7-12.7); Neutrophils % 65.4 % (38.7-73.9); Platelet Count 214 T/CUMM (130-400); Red Blood Count 3.69 MC/CUMM (3.8-5.5); White Blood Count 7.4 T/CUMM (4-12)
[2021-08-11 06:16] LABS: Alanine Aminotransferase 17 U/L (16-61); Alkaline Phosphatase 67 U/L (45-117); Aspartate Amino Transferase 13 U/L (0-37); Bilirubin,Indirect 0.6 MG/DL (0.0-1.0); Blood Urea Nitrogen 29 MG/DL (7-18); Calcium 9.2 MG/DL (8.5-10.1); Carbon Dioxide 27 MMOL/L (21-32); Chloride 104 MMOL/L (98-107); Glucose 115 MG/DL (74-106); Osmolality,Calculated 283.5 MOS/KG (273-304); Potassium 3.8 MMOL/L (3.5-5.1); Sodium 139 MMOL/L (136-145); Total Protein 6.3 G/DL (6.4-8.2)
[2021-08-11] MEDS: INSULIN REGULAR 100 UNIT/ML SUBCUT SCH ×4 (08:55→20:52)
[2021-08-11] MEDS: DILTIAZEM INJ 100 MG in SODIUM CHLORIDE 0.9% 100 ML IV SCH (08:55)
[2021-08-11] MEDS: POLYETHYLENE GLYCOL POWDER 17 GM PACK PO SCH (09:00)
[2021-08-11] MEDS ORDERED: POTASSIUM CHLORIDE 20 MEQ TABLET PO ONE (09:01)
[2021-08-11] MEDS: ASCORBIC ACID 500 MG TABLET PO SCH ×2 (09:01→20:51)
[2021-08-11] MEDS: carvediloL 12.5 MG TABLET PO SCH ×2 (09:02→20:51)
[2021-08-11] MEDS: SERTRALINE 25 MG TABLET PO SCH (09:02)
[2021-08-11] MEDS: MULTIVITAMIN (OCUVITE) TABLET PO SCH ×2 (09:03→20:51)
[2021-08-11] MEDS: DAPAGLIFLOZIN 10 MG TABLET PO SCH (09:03)
[2021-08-11] MEDS: gemfibroziL 600 MG TABLET PO SCH ×2 (09:03→20:52)
[2021-08-11] MEDS: DILTIAZEM CD 120 MG CAPSULE PO SCH ×2 (09:04→20:51)
[2021-08-11] MEDS: PANTOPRAZOLE 40 MG TABLET PO SCH (09:04)
[2021-08-11] MEDS: DOCUSATE SODIUM 100 MG CAPSULE PO SCH (09:05)
[2021-08-11] MEDS: APIXABAN 2.5 MG TABLET PO SCH ×2 (09:05→20:52)
[2021-08-11] MEDS: AMIODARONE 200 MG TABLET PO SCH ×2 (09:05→20:52)
[2021-08-11] MEDS: ASPIRIN EC 81 MG TABLET PO SCH (09:05)
[2021-08-11] MEDS: CYANOCOBALAMIN 500 MCG TABLET PO SCH (09:06)
[2021-08-11] MEDS: CHOLECALCIFEROL 1,000 UNIT TABLET PO SCH (09:06)
[2021-08-11] MEDS: FERROUS SULFATE 325 MG TABLET PO SCH (09:07)
[2021-08-11] MEDS: CHLORHEXIDINE 0.12% ORAL RINSE 60 ML BOTTLE SWISH/SPIT SCH ×2 (09:08→20:53)
[2021-08-11] MEDS: ROSUVASTATIN 20 MG TABLET PO SCH (20:52)
[2021-08-12] MEDS: ZALEPLON 5 MG CAPSULE PO PRN ×2 (00:36→23:23)
[2021-08-12 05:28] LABS: Basophils # 0.1 10*3/uL (0.0-0.2); Basophils % 0.7 % (0.0-0.8); Eosinophils # 0.2 10*3/uL (0.0-0.87); Hematocrit 31.7 VOL% (42.0-52.0); Hemoglobin 10.3 GM/DL (14.0-18.0); Immature Granulocytes Absolute 0.16 #; Lymphocytes # 1.3 10*3/uL (1.4-4.0); Lymphocytes % 16.2 % (21.2-54.2); Mean Corpuscular HGB Conc 32.5 GM/DL (32-36); Mean Corpuscular Volume 87.1 FL (87-102); Mean Platelet Volume 9.1 FL (9.6-12.0); Monocytes # 0.9 10*3/uL (0.11-0.8); Monocytes % 10.9 % (1.7-12.7); NRBC # 0.04 10*3/uL; Neutrophils % 67.2 % (38.7-73.9); Platelet Count 222 T/CUMM (130-400); Red Blood Count 3.64 MC/CUMM (3.8-5.5)
[2021-08-12 05:39] LABS: Calcium 9.3 MG/DL (8.5-10.1); Osmolality,Calculated 280.7 MOS/KG (273-304)
[2021-08-12] MEDS: DILTIAZEM CD 120 MG CAPSULE PO SCH ×2 (09:09→21:08)
[2021-08-12] MEDS: POLYETHYLENE GLYCOL POWDER 17 GM PACK PO SCH (09:09)
[2021-08-12] MEDS: INSULIN REGULAR 100 UNIT/ML SUBCUT SCH ×4 (09:09→21:09)
[2021-08-12] MEDS: ASCORBIC ACID 500 MG TABLET PO SCH ×2 (09:10→21:07)
[2021-08-12] MEDS: MULTIVITAMIN (OCUVITE) TABLET PO SCH ×2 (09:10→21:08)
[2021-08-12] MEDS: DAPAGLIFLOZIN 10 MG TABLET PO SCH (09:10)
[2021-08-12] MEDS: AMIODARONE 200 MG TABLET PO SCH ×2 (09:10→21:07)
[2021-08-12] MEDS: PANTOPRAZOLE 40 MG TABLET PO SCH (09:10)
[2021-08-12] MEDS: gemfibroziL 600 MG TABLET PO SCH ×2 (09:10→21:08)
[2021-08-12] MEDS: ASPIRIN EC 81 MG TABLET PO SCH (09:11)
[2021-08-12] MEDS: CYANOCOBALAMIN 500 MCG TABLET PO SCH (09:11)
[2021-08-12] MEDS: FERROUS SULFATE 325 MG TABLET PO SCH (09:11)
[2021-08-12] MEDS: DOCUSATE SODIUM 100 MG CAPSULE PO SCH (09:11)
[2021-08-12] MEDS: SERTRALINE 25 MG TABLET PO SCH (09:11)
[2021-08-12] MEDS: APIXABAN 2.5 MG TABLET PO SCH ×2 (09:11→21:07)
[2021-08-12] MEDS: CHOLECALCIFEROL 1,000 UNIT TABLET PO SCH (09:11)
[2021-08-12] MEDS: carvediloL 25 MG TABLET PO SCH ×2 (09:11→21:07)
[2021-08-12] MEDS: CHLORHEXIDINE 0.12% ORAL RINSE 60 ML BOTTLE SWISH/SPIT SCH ×2 (09:17→21:09)
[2021-08-12] MEDS ORDERED: LIDOCAINE 1% 5 ML VIAL ONE (14:02)
[2021-08-12] MEDS ORDERED: ETOMIDATE 40 MG/20 ML VIAL IV ONE (14:02)
[2021-08-12] MEDS: ROSUVASTATIN 20 MG TABLET PO SCH (21:07)
[2021-08-13 05:44] LABS: Basophils # 0.1 10*3/uL (0.0-0.2); Basophils % 0.7 % (0.0-0.8); Eosinophils # 0.2 10*3/uL (0.0-0.87); Hemoglobin 9.9 GM/DL (14.0-18.0); Immature Granulocytes % 1.9 %; Immature Granulocytes Absolute 0.14 #; Lymphocytes # 1.2 10*3/uL (1.4-4.0); Lymphocytes % 16.6 % (21.2-54.2); Mean Corpuscular HGB Conc 31.9 GM/DL (32-36); Mean Corpuscular Volume 88.8 FL (87-102); Mean Platelet Volume 9.3 FL (9.6-12.0); Monocytes # 0.8 10*3/uL (0.11-0.8); Monocytes % 11.4 % (1.7-12.7); NRBC # 0.04 10*3/uL; Neutrophils % 66.4 % (38.7-73.9); Platelet Count 234 T/CUMM (130-400); Red Blood Count 3.49 MC/CUMM (3.8-5.5); Red Cell Distribution Width 17.3 % (9.3-17.3); White Blood Count 7.3 T/CUMM (4-12)
[2021-08-13 06:01] LABS: Calcium 8.9 MG/DL (8.5-10.1); Osmolality,Calculated 285.3 MOS/KG (273-304); Potassium 3.5 MMOL/L (3.5-5.1)
[2021-08-13] MEDS: POLYETHYLENE GLYCOL POWDER 17 GM PACK PO SCH (09:10)
[2021-08-13] MEDS: DAPAGLIFLOZIN 10 MG TABLET PO SCH (09:11)
[2021-08-13] MEDS: POTASSIUM CHLORIDE 20 MEQ TABLET PO PRN ×2 (09:11→13:06)
[2021-08-13] MEDS: CHOLECALCIFEROL 1,000 UNIT TABLET PO SCH (09:11)
[2021-08-13] MEDS: DOCUSATE SODIUM 100 MG CAPSULE PO SCH (09:12)
[2021-08-13] MEDS: APIXABAN 2.5 MG TABLET PO SCH (09:12)
[2021-08-13] MEDS: CYANOCOBALAMIN 500 MCG TABLET PO SCH (09:12)
[2021-08-13] MEDS: ASPIRIN EC 81 MG TABLET PO SCH (09:12)
[2021-08-13] MEDS: ASCORBIC ACID 500 MG TABLET PO SCH (09:12)
[2021-08-13] MEDS: FERROUS SULFATE 325 MG TABLET PO SCH (09:13)
[2021-08-13] MEDS: MULTIVITAMIN (OCUVITE) TABLET PO SCH (09:13)
[2021-08-13] MEDS: DILTIAZEM CD 120 MG CAPSULE PO SCH (09:13)
[2021-08-13] MEDS: AMIODARONE 200 MG TABLET PO SCH (09:14)
[2021-08-13] MEDS: PANTOPRAZOLE 40 MG TABLET PO SCH (09:14)
[2021-08-13] MEDS: carvediloL 25 MG TABLET PO SCH (09:14)
[2021-08-13] MEDS: SERTRALINE 25 MG TABLET PO SCH (09:14)
[2021-08-13] MEDS: gemfibroziL 600 MG TABLET PO SCH (09:14)
[2021-08-13] MEDS: INSULIN REGULAR 100 UNIT/ML SUBCUT SCH ×2 (09:15→13:06)
[2021-08-13] MEDS: CHLORHEXIDINE 0.12% ORAL RINSE 60 ML BOTTLE SWISH/SPIT SCH (09:23)
[2021-08-13 12:07] VITALS: BP 128/78
[2021-08-14] MEDS ORDERED: AMIODARONE 200 MG TABLET PO SCH (09:00)
== END 2021-08-13 15:36 | disposition home health service (06) | DRG 236 ==
LOC: N.TELEN 12:47 → N.CVR 08-05 11:11 → N.ICU 08-06 19:12 → N.TELES 08-10 17:21